=== PATIENT | female | born 1995 | race Caucasian/White ===

== ENCOUNTER 2018-04-30 12:51 | Emergency (ER) | payer OTHER ==
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
[2018-04-30] MEDS ORDERED: HYDROMORPHONE HCL 1 MG/ML SYRINGE IVP ONE ×2 (13:05→13:20)
[2018-04-30] MEDS ORDERED: ONDANSETRON 4 MG/2 ML VIAL IVP ONE (13:05)
[2018-04-30] MEDS ORDERED: DEXLANSOPRAZOLE (13:21)
[2018-04-30] MEDS ORDERED: NORE1CAP (13:21)
[2018-04-30] MEDS ORDERED: MORPHINE 4 MG/ML SDV IVP ONE (14:30)
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
[2018-04-30 17:00] VITALS: BP 146/88
--- NOTE | 2018-04-30 17:00 | RADIOLOGY IMAGING REPORT ---
FACILITY: [facility] PATIENT NAME: Cristiana Jernigan : 1995 MR: [id number] V: [id number] EXAM DATE: ORDERING PHYSICIAN: TJ HOSKINS TECHNOLOGIST: Location: [facility] - [place] Patient: Cristiana Jernigan : 1995 Visit/Account:[id number] Date of Sevice: 04/30/2018 Technique: XR WRIST 2 VWS LT HISTORY: post reduction Comparison studies: Left wrist radiographs 04/30/2018 FINDINGS: Casting overlies the left wrist. Again noted is a comminuted, intra-articular fracture invo lving the distal left radial metadiaphysis. Also noted is a nondisplaced ulna styloid fracture. IMPRESSION: 1. Status post casting of a comminuted, intra-articular distal left radial fracture. Report Dictated By: Marky Carey DO at 04/30/2018 4:39 PM Report E-Signed By: Marky Carey DO at 04/30/2018 4:57 PM WSN:[id number]
[2018-04-30] MEDS ORDERED: HYDR-385 PO (17:12)
[2018-04-30] MEDS ORDERED: ONDA4TAB97 PO (17:12)
[2018-04-30] MEDS ORDERED: ACET/HYDROC 5/325MG TH ER ONLY 2 TAB/BOTTLE PO ONE (17:45)
[2018-04-30] MEDS ORDERED: APAP/HYDROCODONE 325/5 TAB PO ONE (17:45)
[2018-04-30] MEDS ORDERED: ONDANSETRON 4 MG ODT TH ONE (17:59)
== END 2018-04-30 18:00 | disposition home or self-care (01) ==
LOC: ER 13:03
DX: S52.125A Nondisplaced fracture of head of left radius, initial encounter for closed fracture (principal); S52.592A Other fractures of lower end of left radius, initial encounter for closed fracture; S52.615A Nondisplaced fracture of left ulna styloid process, initial encounter for closed fracture; V86.52XA Driver of snowmobile injured in nontraffic accident, initial encounter
CPT/HCPCS: 25605; 73010; 73030; 73060; 73080; 73090; 73100; 73110; 73564; 96374; 96375; 99284; A4565; J1170; J2270; J2405; S0119